=== PATIENT | female | born 1950 | race Caucasian/White ===

== ENCOUNTER 2023-08-22 08:38 | Outpatient (CLI) | payer MEDICARE, BC, SELFPAY ==
--- NOTE | 2023-08-22 09:15 | MR_ITS ---
Patient: VANESSA DIETZ Facility:?[facility] Patient ID:?[id number] Site Patient ID:?[id number]. Site :?[id number] Study:?MRI-Spine Lumbar W/O-08/22/2023 10:06:45 AM Ordering Physician:LIANE WISEMAN Final Report: INDICATION: Lumbar radiculopathy. TECHNIQUE : Lumbar spine MRI without contrast. COMPARISON: Lumbar spine MRI from 11/07/2019. FINDINGS : Five lumbar type vertebral bodies, with the last fully formed disc space designated as L5-S1. Normal lumbar lordotic curve. No recent compression fracture or marrow replacing process. Lower cord/conus signal is normal. The conus terminates at a normal location. No intradural lesion. Left kidney is absent. Discs/Endplates: At L5-S1, moderate disc height loss and disc desiccation. At L2, large inferior endplate Schmorl`s node deformity. Moderate disc height loss on the right with accompanying type 1 reactive marrow changes. Mild disc degeneration elsewhere. Findings at individual levels as follows: T11-12: Mild disc bulge with posterior annular fissure. No spinal canal or neural foraminal stenosis. T12-L1: Mild disc bulge, asymmetric to the left. Bilateral low-grade facet arthrosis. No spinal canal or neural foraminal stenosis. L1-2: Mild disc bulge, asymmetric to the left. Bilateral low-grade facet arthrosis. Mild bilateral neural foraminal stenosis. No spinal canal stenosis. L2-3: There is retrolisthesis. Moderate disc bulge with underlying osteophytic ridging, asymmetric to the right. Bilateral low-grade facet arthrosis. Mild spinal canal stenosis and right subarticular recess stenosis with contact of the traversing right L3 nerve root. Mild bilateral neural foraminal stenosis. L3-4: Mild disc bulge. Bilateral low-grade facet arthrosis. Mild bilateral neural foraminal stenosis. No spinal canal stenosis. L4-5: Trace anterolisthesis mild disc bulge with underlying osteophytic ridging. Bilateral high-grade facet arthrosis. Mild bilateral neural foraminal stenosis. No spinal canal stenosis. L5-S1: Moderate disc bulge with underlying osteophytic ridging, which is quite prominent far laterally. Contact of the left L5 nerve root. A small 5 millimeter left central protrusion with annular fissure contacts the traversing left S1 nerve root. Mild right and moderate left neural foraminal stenosis. No spinal canal stenosis. Imaged SI joints: Within normal limits. 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 IMPRESSION: 1. At L2-3, right subarticular recess stenosis with contact of the traversing right L3 nerve root. New since 2019. Large chronic appearing inferior endplate Schmorl`s node, new since 2019. Right-sided type 1 reactive marrow changes, also new. 2. At L4-5, trace anterolisthesis and high-grade bilateral facet arthrosis. Stable. 3. At L5-S1, left far lateral disc osteophyte contacts the left L5 nerve root. A shallow left central protrusion contacts the traversing left S1 nerve root. Stable. Dictated by Jamie Rosado MD @ 08/22/2023 11:30:58 AM Signed by:?Jamie Rosado MD @08/22/2023 11:30:58 AM (Electronic Signature)
== END 2023-08-22 08:39 | disposition home or self-care (01) ==
LOC: MRI 08:40
PROVIDERS: PCP Family Medicine; Visit Provider Family Medicine
DX: M54.16 Radiculopathy, lumbar region (principal); M48.061 Spinal stenosis, lumbar region without neurogenic claudication; M51.27 Other intervertebral disc displacement, lumbosacral region
CPT/HCPCS: 72148

== ENCOUNTER 2023-10-11 09:46 | Outpatient (CLI) | payer MEDICARE, BC, SELFPAY | END 2023-10-11 09:47 | disposition home or self-care (01) | PROVIDERS: PCP Family Medicine; Visit Provider Family Medicine | DX: I10 Essential (primary) hypertension (principal); Z13.220 Encounter for screening for lipoid disorders | CPT/HCPCS: 80048; 80061 ==